=== PATIENT | female | born 1940 | race Caucasian/White ===

== ENCOUNTER → 2017-10-16 | Outpatient (CLI) | payer OTHER ==
[~2017-10-16] MED LIST: ALBUTEROL2.5 MG/0.5 INH; CHILDREN'S ASPI81 M1 PO; LEVAQUIN 500 M500 M2 PO; LIPITOR 20 MG T20 M1 PO; ONE-A-DAY WOMENS PO; PREDNISONE 20 M20 MG PO; VITAMIN D5000 UNI1 PO
== END ==
LOC: M.RAD 14:22
DX: M48.56XA Collapsed vertebra, not elsewhere classified, lumbar region, initial encounter for fracture (principal); M43.8X6 Other specified deforming dorsopathies, lumbar region; M43.17 Spondylolisthesis, lumbosacral region; I70.0 Atherosclerosis of aorta

== ENCOUNTER → 2017-12-26 | Outpatient (CLI) | payer OTHER | LOC: M.ULTRA 11:00 → M.RAD 12:55 | DX: Z12.31 Encounter for screening mammogram for malignant neoplasm of breast (principal); G45.9 Transient cerebral ischemic attack, unspecified; Z85.79 Personal history of other malignant neoplasms of lymphoid, hematopoietic and related tissues; J44.9 Chronic obstructive pulmonary disease, unspecified ==

== ENCOUNTER → 2019-08-07 | Outpatient (CLI) | payer OTHER | LOC: M.ULTRA 09:45 | DX: I65.23 Occlusion and stenosis of bilateral carotid arteries (principal) ==

== ENCOUNTER 2021-02-24 17:52 | Inpatient (IN) | payer OTHER ==
[~2021-02-24] VITALS: Ht 152.4 cm; Wt 54.6 kg
[2021-02-24 18:05] VITALS: BP 128/50
[2021-02-24] MEDS ORDERED: VITAMIN B-121000 MC2 SUBLING (18:19)
[2021-02-24] MEDS ORDERED: TRELEGY ELLIPT1 EACH INH (18:19)
[2021-02-24] MEDS ORDERED: DULCOLAX STOOL100 M1 PO (18:19)
[2021-02-24] MEDS ORDERED: VITAMIN E100 UNIT PO (18:19)
[2021-02-24] MEDS ORDERED: VITAMIN C500 MG PO (18:19)
[2021-02-24 18:44] LABS: ABSOLUTE BASOPHILS 0.1 thou/uL (0.0-0.2); ABSOLUTE EOSINOPHILS 0.1 thou/uL (0.0-0.7); ABSOLUTE LYMPHOCYTES 2.2 thou/uL (0.8-5.3); ABSOLUTE NEUTROPHILS 5.9 thou/uL (1.6-8.1); BASOPHILS 0.7 %; EOSINOPHILS 1.3 %; HEMATOCRIT 36.5 % (37.0-47.0); HEMOGLOBIN 12.2 gm/dL (12.0-15.0); LYMPHOCYTES 23.6 %; MCH 31.4 pg (26.0-34.0); MCHC 33.5 g/dL (28.0-37.0); MCV 93.9 fL (80.0-100.0); MONOCYTES 10.3 %; NUCLEATED RBCS 0 /100WBC; PLATELET COUNT* 369 thou/uL (150-400); POLYS 64.1 %; RBC 3.89 mil/uL (4.20-5.00); RDW-CV 14.5 % (10.5-14.5); WBC 9.3 thou/uL (4.0-11.0)
[2021-02-24 18:51] LABS: CALCIUM 9.3 mg/dL (8.5-10.1); CREATININE 0.6 mg/dL (0.6-1.3); POTASSIUM 3.6 mmol/L (3.5-5.1)
[2021-02-24 18:55] LABS: ALBUMIN 3.1 g/dL (3.4-5.0); TOTAL BILIRUBIN 0.5 mg/dL (<0.1-1.0); TOTAL PROTEIN 7.4 g/dL (6.4-8.2)
[2021-02-24 21:57] VITALS: BP 134/65
[2021-02-25 04:01] VITALS: BP 121/64
[2021-02-25 09:50] VITALS: BP 111/47
[2021-02-25 11:49] LABS: BE 6.8 mmol/L (-2 to +3); PCO2 45.2 mmHg (35.0-45.0); PO2 67.6 mmHg (75.0-100.0); pH 7.461 (7.340-7.450)
[2021-02-25 11:53] VITALS: BP 110/49
--- NOTE | 2021-02-25 12:55 | EKG ---
[place] [address] ELECTROCARDIOGRAM REPORT Name: RADHIKA STONE Room: [place] [address] ADM IN .R.#: [id number] Admission: 02/25/21 Attend Phys: Lulu Lisa Discharge: Date of : 44 Date of Service: 02/24/211812 Report #: [id number] THIS REPORT FOR: //name// [facility] ED Test Date: 2021-02-24 Test Time: 18:13:04 Pat Name: RADHIKA STONE Department: Room: [facility] Gender: F Sales Representative Business Courses: VISHNU : 1940 Requested By: Gurwinder Cao Order Number: [id number] MD: Santhosh Mackenzie Measurements Intervals [place] Rate: 90 P: 59 CO: 154 QRS: -15 QRSD: 90 T: 24 QT: 326 QTc: 399 Interpretive Statements Sinus rhythm Borderline left axis deviation Compared to ECG 11/26/2016 22:01:37 Sinus tachycardia no longer present ST (T wave) deviation no longer present Electronically Signed On 02-25-2021 12:54:59 CDT by Santhosh Mackenzie [email or web address] <ELECTRONICALLY SIGNED> By: Santhosh Mackenzie MD, [facility] 02/25/21 1254 181 181 Santhosh Mackenzie MD, [facility] /EPI
[2021-02-25 16:00] VITALS: BP 104/49
[2021-02-26] VITALS: BP 121/44
[2021-02-26 04:22] VITALS: BP 116/50
[2021-02-26 05:25] LABS: ABSOLUTE LYMPHOCYTES 0.7 thou/uL (0.8-5.3); ABSOLUTE MONOCYTES 0.2 thou/uL (0.0-1.2); ABSOLUTE NEUTROPHILS 5.9 thou/uL (1.6-8.1); BASOPHILS 0.2 %; HEMATOCRIT 33.1 % (37.0-47.0); LYMPHOCYTES 10.6 %; MCH 31.3 pg (26.0-34.0); MCHC 33.2 g/dL (28.0-37.0); MCV 94.2 fL (80.0-100.0); MONOCYTES 3.3 %; MPV 7.4 fl. (7.2-11.1); NUCLEATED RBCS 0 /100WBC; PLATELET COUNT* 337 thou/uL (150-400); POLYS 85.9 %; RBC 3.51 mil/uL (4.20-5.00); RDW-CV 14.8 % (10.5-14.5); WBC 6.8 thou/uL (4.0-11.0)
[2021-02-26 05:42] LABS: ALBUMIN 2.8 g/dL (3.4-5.0); CALCIUM 9.1 mg/dL (8.5-10.1); CREATININE 0.5 mg/dL (0.6-1.3); PHOSPHORUS* 4.2 mg/dL (2.5-4.9); POTASSIUM 4.9 mmol/L (3.5-5.1); TOTAL BILIRUBIN 0.3 mg/dL (<0.1-1.0); TOTAL PROTEIN 6.8 g/dL (6.4-8.2)
[2021-02-26 08:00] VITALS: BP 102/51
[2021-02-26 15:14] VITALS: BP 113/51
[2021-02-26 20:00] VITALS: BP 98/50
[2021-02-26 23:40] VITALS: BP 106/42
[2021-02-27 04:39] LABS: HEMATOCRIT 33.5 % (37.0-47.0); HEMOGLOBIN 11.2 gm/dL (12.0-15.0); MCH 31.4 pg (26.0-34.0); MCHC 33.4 g/dL (28.0-37.0); MCV 94.2 fL (80.0-100.0); MPV 7.6 fl. (7.2-11.1); NUCLEATED RBCS 0 /100WBC; PLATELET COUNT* 335 thou/uL (150-400); RBC 3.56 mil/uL (4.20-5.00); WBC 9.5 thou/uL (4.0-11.0)
[2021-02-27 04:56] VITALS: BP 113/59
[2021-02-27 04:59] LABS: CALCIUM 9.2 mg/dL (8.5-10.1); CREATININE 0.5 mg/dL (0.6-1.3); MAGNESIUM 1.9 mg/dL (1.8-2.4); POTASSIUM 4.5 mmol/L (3.5-5.1)
[2021-02-27 05:51] LABS: ABSOLUTE LYMPHOCYTES 0.8 thou/uL (0.8-5.3); ABSOLUTE MONOCYTES 0.2 thou/uL (0.0-1.2); ABSOLUTE NEUTROPHILS 8.6 thou/uL (1.6-8.1); ANISOCYTOSIS 1+; PLATELET ESTIMATE ADEQUATE; POIKILOCYTOSIS 1+
[2021-02-27 08:00] VITALS: BP 102/48
[2021-02-27 11:40] VITALS: BP 123/57
--- NOTE | 2021-02-27 15:08 | CON ---
[address] [address] CONSULTATION Name: RADHIKA STONE Alyssa Room: [address] IN M.R.#: [id number] Admission: 02/25/21 Attend Phys: Tate Stubbs Discharge: Date of : 44 Report #: [id number] THIS REPORT FOR: cc: Chauncey Iniguez Adam J DO Pervez, Adeel MD ~ DOC #: [id number] Dano Bishop MD DATE OF CONSULTATION: 02/25/2021 CONSULTATION REQUESTED BY: Dr. Stu Reinoso INDICATION FOR CONSULTATION: Acute hypoxemic respiratory failure. HISTORY OF PRESENT ILLNESS: A 80-year-old female. Past medical history includes a history of COPD. The patient usually takes 3-4 liters of oxygen, continuous. Based on her CAT scan, it also appears to me that she has an interstitial lung disease. It is not known to me as to whether this has been previously diagnosed. The patient has an extensive previous history of smoking. The patient has now presented with increasing shortness of breath of the last several days' duration. The patient says that she has been checking her pulse oximetry at home and has noticed that O2 saturation has been dropping. The patient also reported having had a cough, but not much sputum. There is no chest pain. She does not have upper respiratory complaints. There is no increasing swelling of lower extremities. There is no joint pain, no fever or chills. The patient does report that she was vaccinated for COVID-19. Currently, the patient is requiring about 5 liters of oxygen to maintain O2 saturation in the low 90s. Note that usually she saturates at this level at around 3-4 liters, there is increase in oxygen needs. REVIEW OF SYSTEMS: Review of systems for 12 points is negative except as mentioned above. PAST MEDICAL HISTORY: COPD, not known to me as to whether the patient has already been diagnosed with an interstitial lung disease, on oxygen long-term. There is an echo from 2017, which looks unremarkable. Left hip surgery, gallbladder surgery, osteoporosis, hyperlipidemia, bilateral cataract surgery, right hip surgery, hysterectomy. SOCIAL HISTORY: She has an extensive history of smoking, has now discontinued. About one alcoholic drink a day. No known history of illegal drug use. CURRENT MEDICATIONS: [place] [address] CONSULTATION Name: STONERADHIKA Room: [address] IN [facility].#: [id number] Admission: 02/25/21 Attend Phys: Tate Stubbs Discharge: Date of : 44 Report #: [id number] HOME MEDICATIONS: List in [place] reviewed. FAMILY HISTORY: There is no pertinent family history. PHYSICAL EXAMINATION: GENERAL: She is alert, awake and oriented, did not appear to be in any distress. VITAL SIGNS: Pulse of 91, blood pressure of 104/49. She was well perfused, sitting comfortably in a chair, but saturating 92% on 5 liters nasal cannula. Respiratory rate 17-18. Afebrile, temperature is 36.8. HEENT: Normocephalic and atraumatic. The pupils are equal. There is no throat erythema. Mucous membranes are moist. NECK: Does not show raised JVP, asymmetry, mass or lymph nodes. CHEST: Symmetrical expansion on inspection and palpation. On auscultation, there are rales at the right lung base. Breath sounds are bilaterally decreased. Expirations are prolonged. No wheezes are heard. HEART: Regular. There is no murmur. ABDOMEN: Soft and nontender. LOWER EXTREMITIES: Show no edema, no calf tenderness. There is evidence of chronic venous insufficiency. There are some varicose veins noted. SKIN: However, is dry and intact. NEUROLOGIC: Moves all extremities bilaterally equally and spontaneously, no focal deficit identified. DIAGNOSTIC DATA: The patient's CTA chest is reviewed. Chest x-ray also reviewed. Primarily, this appears to be consistent with an interstitial lung disease. There are some atypical looking infiltrates as well. The radiologist has mentioned that there may be some mild bronchiectasis. There are no pulmonary emboli. LABORATORY DATA: The patient's lab work in [place] reviewed. COVID-19 antigen is negative. PCR is pending. ASSESSMENT AND PLAN: 1. Acute on chronic hypoxemic respiratory failure. In addition, it appears to me that she has an interstitial lung disease, unknown as to whether this was previously diagnosed. There are some atypical infiltrates as well. 2. Chronic obstructive pulmonary disease exacerbation. I agree with the Solu-Medrol as well as albuterol inhaler. We will switch this to nebulized bronchodilators if the COVID-19 PCR comes back negative or if we have a negative pressure room available. The patient appears to be doing well with the inhaler at this time and therefore, I do not feel strongly about changing therapy at this time. 3. Interstitial lung disease. CT is consistent with this, CXR from a [address] [address] CONSULTATION Name: RADHIKA STONE Room: [place] [address] ADM IN M.R.#: [id number] Admission: 02/25/21 Attend Phys: Tate Stubbs Discharge: Date of : 44 Report #: [id number] years ago, which also appears to be consistent with this. Not known to me as to whether the patient was previously diagnosed. I will go ahead and obtain connective tissue markers to evaluate further. 4. Atypical infiltrates. Note that she has been vaccinated for COVID. Also, the CT findings are not typical for COVID, so my suspicion of COVID is fairly low; however, I feel that it is reasonable to go ahead and obtain a PCR and rule this out. These infiltrates may be old and related to her interstitial lung disease; however, a new pneumonia including atypical pneumonia does need to be considered as well. I would, therefore, go ahead and send off serologies for atypicals. I also recommend that we add azithromycin. The patient remains on ceftriaxone. If able to, again obtain a sputum culture. Previous pulmonary followup is not known to me. If a previous CT chest is not available for comparison, I would recommend that we repeat a CT chest without contrast for followup in 3 months. 5. Evaluation for thromboembolic phenomena/cardiac evaluation. Her BNP was elevated to 580. She did not appear to be significantly fluid overloaded. On exam, D-dimer is elevated. There are no pulmonary emboli on CTA chest. I would go ahead and obtain venous Dopplers. We will also do an echo. 6. Clostridium difficile prophylaxis. We will add Lactinex. 7. Gastrointestinal prophylaxis, already on Protonix. Thanks for this consultation. MD RAFAL Mora/NAN <ELECTRONICALLY SIGNED> By: Dano Bishop MD 02/27/21 1508 1959 [id number] Bishop MD /nt
[2021-02-27 20:00] VITALS: BP 117/63
[2021-02-27 23:46] VITALS: BP 101/45
[2021-02-28 04:34] VITALS: BP 108/70
[2021-02-28 08:00] VITALS: BP 99/49
[2021-02-28 10:08] LABS: ANTI-DNA SCREEN <1 IU/mL (0-9); ANTI-RNP <0.2 AI (0.0-0.9); ANTI-SSA <0.2 AI (0.0-0.9); ANTIJO-I AB <0.2 AI (0.0-0.9)
[2021-02-28 16:00] VITALS: BP 97/50
[2021-02-28 20:00] VITALS: BP 108/62
[2021-02-28 23:06] LABS: MYCOPLASMA PNEUMONIA IgG 254 U/mL (0-99); MYCOPLASMA PNEUMONIA IgM <770 U/mL (0-769)
[2021-03-01 07:00] VITALS: BP 112/59
[2021-03-01 08:08] VITALS: BP 112/59
[2021-03-01] MEDS ORDERED: AZITHROMYCIN 2250 MG PO (09:02)
[2021-03-01] MEDS ORDERED: PREDNISONE 10 M10 M1 PO (09:02)
[2021-03-01 11:44] VITALS: BP 112/59
== END 2021-03-01 16:47 | disposition home health service (06) | DRG 177 ==
LOC: M.ERS 17:52 → M.TBA-ER 21:43 → M.2W 22:28 → M.ORTHSURG 02-25 11:21 → M.2W 02-28 09:08 → M.ORTHSURG 02-28 18:09
PROVIDERS: Emergency Medicine; Internal Medicine; Internal Medicine Critical Care Medicine; ADMIT Internal Medicine; ATTEND Internal Medicine
PROC: 5A0935A Assistance with Respiratory Ventilation, Less than 24 Consecutive Hours, High Flow/Velocity Cannula (ICD-10-PCS; principal; 2021-02-26)
DX: J15.6 Pneumonia due to other Gram-negative bacteria (principal); J96.20 Acute and chronic respiratory failure, unspecified whether with hypoxia or hypercapnia; J84.9 Interstitial pulmonary disease, unspecified; J43.9 Emphysema, unspecified; E78.00 Pure hypercholesterolemia, unspecified; M81.0 Age-related osteoporosis without current pathological fracture; Z20.822 Contact with and (suspected) exposure to COVID-19; Z96.643 Presence of artificial hip joint, bilateral; Z87.891 Personal history of nicotine dependence; Z98.42 Cataract extraction status, left eye; Z98.41 Cataract extraction status, right eye; Z90.49 Acquired absence of other specified parts of digestive tract; Z79.82 Long term (current) use of aspirin; Z79.899 Other long term (current) drug therapy; Z72.89 Other problems related to lifestyle; Z90.710 Acquired absence of both cervix and uterus

== ENCOUNTER → 2021-04-12 | Outpatient (CLI) | payer OTHER ==
[~2021-04-12] MED LIST changes: +AZITHROMYCIN 2250 MG PO; +DULCOLAX STOOL100 M1 PO; +PREDNISONE 10 M10 M1 PO; +TRELEGY ELLIPT1 EACH INH; +VITAMIN B-121000 MC2 SUBLING; +VITAMIN C500 MG PO; +VITAMIN E100 UNIT PO
--- NOTE | 2021-04-12 09:54 | 2DMMODE ---
[place] [address] 2 D/M-MODE ECHOCARDIOGRAM Name: RADHIKA STONE Room: [facility]#: [id number] Admission: 04/12/21 Attend Phys: Dano Bishop MD Discharge: Date of : 44 Date of Service: 04/12/21 0953 Report #: [id number] THIS REPORT FOR: cc: Chauncey Iniguez Adam J DO Blick,Santhosh Middleton MD [facility] ~ APPROVED REPORT Study performed: 04/12/2021 08:36:47 EXAM: Comprehensive 2D, Doppler, and color-flow Echocardiogram Patient Location: Out-Patient BSA: 1.57 HR: 98 bpm BP: 119/60 mmHg Other Information Study Quality: Good Indications Dyspnea 2D Dimensions IVSd: 8.62 (7-11mm) LVOT Diam: 20.15 (18-24mm) LVDd: 41.45 mm PWd: 9.12 (7-11mm) Ascending Ao: 29.17 (22-36mm) LVDs: 22.65 (25-40mm) Aortic Root: 32.79 mm Volumes Left Atrial Volume (Systole) LA ESV Index: 12.50 mL/m2 Aortic Valve AoV Peak Jimmy.: 1.43 m/s AO Peak Gr.: 8.23 mmHg LVOT Max P.83 mmHg AO Mean Gr.: 4.73 mmHg LVOT Mean P.34 mmHg LVOT Max V: 0.84 m/s AO V2 VTI: 26.91 cm LVOT Mean V: 0.53 m/s FLORENCE (VTI): 2.04 cm2 LVOT V1 VTI: 17.18 cm Mitral Valve E/A Ratio: 0.69 [place] [address] 2 D/M-MODE ECHOCARDIOGRAM Name: RADHIKA STONE Room: [facility]#: [id number] Admission: 04/12/21 Attend Phys: Dano Bishop MD Discharge: Date of : 44 Date of Service: 04/12/21 0953 Report #: [id number] MV Decel. Time: 234.13 ms MV E Max Jimmy.: 0.60 m/s MV PHT: 67.90 ms MVA (PHT): 3.24 cm2 TDI E/Lateral E': 6.67 E/Medial E': 6.67 Medial E' Jimmy.: 0.09 m/s Lateral E' Jimmy.: 0.09 m/s Pulmonary Valve PV Peak Jimmy.: 0.92 m/s PV Peak Gr.: 3.42 mmHg Tricuspid Valve RAP Estimate: 5.00 mmHg TR Peak Gr.: 62.21 mmHg RVSP: 67.21 mmHg PA Pressure: 67.21 mmHg Left Ventricle The left ventricle is normal size. There is normal LV segmental wall motion. There is normal left ventricular wall thickness. Left ventricular systolic function is normal. The left ventricular ejection fraction is within the normal range. LVEF is 60-65%. Grade I - abnormal relaxation pattern. Right Ventricle The right ventricle is normal size. The right ventricular systolic function is normal. Atria The left atrium size is normal. The right atrium size is normal. Aortic Valve Aortic valve leaflets are mildly thickened. No aortic regurgitation is present. There is no aortic valvular stenosis. Mitral Valve The mitral valve is normal in structure. There is no mitral valve regurgitation noted. No evidence of mitral valve stenosis. Tricuspid Valve The tricuspid valve is normal in structure. Moderate tricuspid regurgitation. estimated pa pressure 60 mm [place] [address] 2 D/M-MODE ECHOCARDIOGRAM Name: RADHIKA STONE Room: [facility]#: [id number] Admission: 04/12/21 Attend Phys: Dano Bishop MD Discharge: Date of : 44 Date of Service: 04/12/21 0953 Report #: [id number] The pulmonary valve is normal in structure. There is no pulmonic valvular regurgitation. Great Vessels The aortic root is normal in size. IVC is normal in size and collapses >50% with inspiration. Pericardium There is no pericardial effusion. <Conclusion> LVEF is 60-65%. Aortic valve leaflets are mildly thickened. Moderate tricuspid regurgitation. estimated pa pressure 60 mm Hg <ELECTRONICALLY SIGNED> By: Santhosh Mackenzie MD, FACC 04/12/2153 2 2 Santhosh Mackenzie MD, FACC /INF
== END ==
LOC: M.CRD 03-28 16:09
PROVIDERS: ATTEND Internal Medicine Critical Care Medicine
DX: S22.060A Wedge compression fracture of T7-T8 vertebra, initial encounter for closed fracture (principal); I08.2 Rheumatic disorders of both aortic and tricuspid valves; J84.9 Interstitial pulmonary disease, unspecified; R91.8 Other nonspecific abnormal finding of lung field; J96.11 Chronic respiratory failure with hypoxia; X58.XXXA Exposure to other specified factors, initial encounter; Y92.89 Other specified places as the place of occurrence of the external cause; Y93.89 Activity, other specified; Y99.8 Other external cause status

== ENCOUNTER → 2021-04-24 | Outpatient (CLI) | payer OTHER | LOC: M.PC 04-10 09:00 | PROVIDERS: ATTEND Physical Medicine & Rehabilitation | DX: M48.56XA Collapsed vertebra, not elsewhere classified, lumbar region, initial encounter for fracture (principal); M47.816 Spondylosis without myelopathy or radiculopathy, lumbar region; M48.061 Spinal stenosis, lumbar region without neurogenic claudication; J44.9 Chronic obstructive pulmonary disease, unspecified; I70.0 Atherosclerosis of aorta; Z87.01 Personal history of pneumonia (recurrent); Z96.641 Presence of right artificial hip joint ==

== ENCOUNTER → 2021-05-05 | Outpatient (CLI) | payer OTHER ==
[~2021-05-05] MED LIST changes: +SINGULAIR 10 MG10 MG PO; +TYLENOL325 M1 PO
--- NOTE | 2021-06-16 20:09 | SLEEP ---
[address] [address] SLEEP STUDY REPORT Name: RADHIKA STONE Room: [facility]#: [id number] Admission: 05/05/21 Attend Phys: Dano Bishop MD Discharge: Date of : 44 Report #: [id number] THIS REPORT FOR: cc: Chauncey Iniguez Adam J DO Pervez, Adeel MD ~ DATE OF STUDY: 05/05/2021 SLEEP STUDY INDICATION FOR SLEEP STUDY: Daytime sleepiness/hypersomnia with a history of COPD. The patient is on long-term oxygen. INTERPRETATION: Total duration of the study is 441 minutes out of which she was asleep for 200 minutes with an overall sleep efficiency significantly decreased to 45.3%. Sleep onset was delayed occurring almost 2 hours after lying down in bed and REM onset occurred 190 minutes after sleep onset. N1 sleep duration is 17%, N2 duration is 57%, N3 duration is 15%, REM duration was 12%. Recorded occasional sleep related respiratory events. These included 1 central apnea, 1 obstructive apnea, 6 hypopneas and 1 respiratory effort related arousals. The patient's overall apnea-hypopnea index was normal at 2.4 with a respiratory disturbance index also normal at 2.7. Body position data indicates that 103 minutes of supine sleep was recorded. The rest of the time the patient was in other positions. Mean heart rate was 80. There were no periodic limb movements recorded. Arousal index was mildly elevated to 13.8. The patient arrived in the sleep lab wearing 3 liters of oxygen. Sleep study was initially started on room air; however, the O2 saturation dropped to 70%; therefore, the patient was placed on 1 liter of oxygen to maintain on 1 liter of oxygen throughout the night. We did record multiple desaturations with 1 liter of oxygen in place. The patient spent 344 minutes below an O2 saturation of 88%. IMPRESSION: 1. Chronic hypoxemic respiratory failure secondary to chronic obstructive pulmonary disease with nocturnal hypoxemia, not adequately controlled with 1 liter of oxygen. 2. While obstructive sleep apnea is not detected during the sleep study, it is not ruled out either. The patient's sleep efficiency is significantly decreased to 45.3% and the patient was awake for more than half the night. RECOMMENDATIONS: 1. The patient currently remains on oxygen at 3-4 liters via nasal cannula while asleep. We will continue the same and we will follow [place] [address] SLEEP STUDY REPORT Name: RADHIKA STONE Room: [facility]#: [id number] Admission: 05/05/21 Attend Phys: Dano Bishop MD Discharge: Date of : 44 Report #: [id number] 2. We will assess further regarding the possibility of obstructive sleep apnea on a subsequent office visits as well. If suspicion remains high, then a repeat sleep study could be performed later. 3. Recommend avoiding driving and other activities requiring vigilance if drowsy. This entire sleep study was reviewed by board certified sleep physician. <ELECTRONICALLY SIGNED> By: Dano Bishop MD 06/16/212008 0745Dano Bishop MD /nt
== END ==
LOC: M.SLEEPLAB 19:52
PROVIDERS: ATTEND Internal Medicine Critical Care Medicine
DX: G47.10 Hypersomnia, unspecified (principal); J44.9 Chronic obstructive pulmonary disease, unspecified; J96.11 Chronic respiratory failure with hypoxia; R53.83 Other fatigue; Z99.81 Dependence on supplemental oxygen

== ENCOUNTER → 2021-05-08 | Outpatient (CLI) | payer OTHER | LOC: M.PC 08:57 | PROVIDERS: ATTEND Physical Medicine & Rehabilitation | DX: M47.26 Other spondylosis with radiculopathy, lumbar region (principal); M48.061 Spinal stenosis, lumbar region without neurogenic claudication; J44.9 Chronic obstructive pulmonary disease, unspecified; Z87.01 Personal history of pneumonia (recurrent); Z79.891 Long term (current) use of opiate analgesic; Z79.899 Other long term (current) drug therapy ==

== ENCOUNTER → 2021-05-29 | Outpatient (CLI) | payer OTHER ==
[2021-05-29 12:24] LABS: CREATININE 0.7 mg/dL (0.6-1.3)
== END ==
LOC: M.ULTRA 05-26 12:16 → M.LAB 10:06 → M.ULTRA 11:00 → M.CT 11:30
PROVIDERS: ATTEND Internal Medicine Critical Care Medicine
DX: S32.010A Wedge compression fracture of first lumbar vertebra, initial encounter for closed fracture (principal); I83.893 Varicose veins of bilateral lower extremities with other complications; J96.11 Chronic respiratory failure with hypoxia; J44.9 Chronic obstructive pulmonary disease, unspecified; I27.20 Pulmonary hypertension, unspecified; J84.9 Interstitial pulmonary disease, unspecified; J90 Pleural effusion, not elsewhere classified; X58.XXXA Exposure to other specified factors, initial encounter; Y92.89 Other specified places as the place of occurrence of the external cause; Y93.89 Activity, other specified; Y99.8 Other external cause status

== ENCOUNTER → 2021-05-29 | Outpatient (CLI) | payer OTHER | END | disposition home or self-care (01) | LOC: M.PC 10:00 | PROVIDERS: ATTEND Physical Medicine & Rehabilitation | DX: M54.5 Low back pain (principal); M47.816 Spondylosis without myelopathy or radiculopathy, lumbar region; M48.061 Spinal stenosis, lumbar region without neurogenic claudication; E78.5 Hyperlipidemia, unspecified; D64.9 Anemia, unspecified; M81.0 Age-related osteoporosis without current pathological fracture; M19.90 Unspecified osteoarthritis, unspecified site; J44.9 Chronic obstructive pulmonary disease, unspecified; Z98.890 Other specified postprocedural states; Z79.899 Other long term (current) drug therapy ==

== ENCOUNTER → 2021-06-12 | Outpatient (CLI) | payer OTHER | END | disposition home or self-care (01) | LOC: M.PC 10:20 | PROVIDERS: ATTEND Physical Medicine & Rehabilitation | DX: M47.816 Spondylosis without myelopathy or radiculopathy, lumbar region (principal); M54.5 Low back pain; M48.061 Spinal stenosis, lumbar region without neurogenic claudication; J44.9 Chronic obstructive pulmonary disease, unspecified; M81.0 Age-related osteoporosis without current pathological fracture; E78.5 Hyperlipidemia, unspecified; D64.9 Anemia, unspecified; M19.90 Unspecified osteoarthritis, unspecified site; Z98.890 Other specified postprocedural states; Z79.899 Other long term (current) drug therapy ==

== ENCOUNTER 2021-08-22 15:44 | Inpatient (IN) | payer OTHER ==
[~2021-08-22] VITALS: Ht 154.9 cm; Wt 49.0 kg
[2021-08-22 15:51] VITALS: BP 121/62
[2021-08-22 16:20] LABS: ABSOLUTE BASOPHILS 0.1 thou/uL (0.0-0.2); ABSOLUTE EOSINOPHILS 0.1 thou/uL (0.0-0.7); ABSOLUTE LYMPHOCYTES 1.8 thou/uL (0.8-5.3); ABSOLUTE NEUTROPHILS 7.3 thou/uL (1.6-8.1); BASOPHILS 0.9 %; EOSINOPHILS 0.8 %; HEMATOCRIT 39.1 % (37.0-47.0); HEMOGLOBIN 12.9 gm/dL (12.0-15.0); MCH 31.2 pg (26.0-34.0); MCHC 32.9 g/dL (28.0-37.0); MCV 94.8 fL (80.0-100.0); MONOCYTES 9.5 %; MPV 7.3 fl. (7.2-11.1); NUCLEATED RBCS 0 /100WBC; PLATELET COUNT* 411 thou/uL (150-400); POLYS 70.8 %; RBC 4.12 mil/uL (4.20-5.00); RDW-CV 14.9 % (10.5-14.5); WBC 10.3 thou/uL (4.0-11.0)
[2021-08-22 16:29] LABS: CALCIUM 9.4 mg/dL (8.5-10.1); CREATININE 0.7 mg/dL (0.6-1.3); POTASSIUM 3.9 mmol/L (3.5-5.1)
[2021-08-22] MEDS ORDERED: PREDNISONE 10 M10 MG PO (16:38)
[2021-08-22 16:45] LABS: ALBUMIN 3.5 g/dL (3.4-5.0); MAGNESIUM 1.7 mg/dL (1.8-2.4); TOTAL BILIRUBIN 0.7 mg/dL (<0.1-1.0); TOTAL PROTEIN 7.8 g/dL (6.4-8.2)
[2021-08-22 20:00] VITALS: BP 113/50
[2021-08-23] VITALS (7 sets, daily range): BP systolic 101–115; BP diastolic 39–68
[2021-08-23 03:22] LABS: HEMATOCRIT 35.8 % (37.0-47.0); HEMOGLOBIN 11.9 gm/dL (12.0-15.0); MCH 31.3 pg (26.0-34.0); MCHC 33.3 g/dL (28.0-37.0); MCV 93.8 fL (80.0-100.0); MPV 7.1 fl. (7.2-11.1); NUCLEATED RBCS 0 /100WBC; PLATELET COUNT* 349 thou/uL (150-400); RBC 3.82 mil/uL (4.20-5.00); RDW-CV 14.7 % (10.5-14.5); WBC 6.3 thou/uL (4.0-11.0)
[2021-08-23 03:40] LABS: CALCIUM 8.9 mg/dL (8.5-10.1); CREATININE 0.7 mg/dL (0.6-1.3); POTASSIUM 4.5 mmol/L (3.5-5.1)
[2021-08-23 06:42] LABS: ABSOLUTE LYMPHOCYTES 0.5 thou/uL (0.8-5.3); ABSOLUTE NEUTROPHILS 5.8 thou/uL (1.6-8.1); PLATELET ESTIMATE ADEQUATE; POLYCHROMASIA 1+
--- NOTE | 2021-08-23 08:28 | NUR ---
TOOK OVER PATIENT CARE AT APPROXIMATELY 0030 FROM NURSE PEREZ. REPORT GIVEN. NURSE AGREES WITH REPORT. PATIENT HAS RESTED QUIETLY AND REMAINS ON NON-REBREATHER. VSS. IV IN LEFT AC-SL. PURE WIK IN PLACE WITH YELLOW URINE OUTPUT. PATIENT INSTRUCTED TO USE CALL LIGHT WHEN NEEDING ASSISTANCE. NURSING TO CONTINUE MONITORING.
--- NOTE | 2021-08-23 08:48 | EKG ---
[place] [address] ELECTROCARDIOGRAM REPORT Name: RADHIKA STONE Room: [place] [address] ADM IN [facility].#: [id number] Admission: 08/22/21 Attend Phys: Stu Reinoso, Discharge: Date of : 44 Date of Service: 08/22/21 1613 Report #: [id number] THIS REPORT FOR: //name// [facility] ED Test Date: 2021-08-22 Test Time: 16:13:47 Pat Name: RADHIKA STONE Department: Room: [facility] Gender: F Biologics Specialist: CHILO : 1940 Requested By: Pee Diez Order Number: [id number] MD: Santhosh Mackenzie Measurements Intervals [place] Rate: 105 P: 48 ND: 132 QRS: 20 QRSD: 94 T: 28 QT: 330 QTc: 437 Interpretive Statements Sinus tachycardia Left atrial enlargement Low voltage, extremity leads Minimal ST depression, lateral leads Baseline wander in lead(s) V2 Compared to ECG 02/24/2021 18:13:04 Low QRS voltage now present ST (T wave) deviation now present Sinus rhythm no longer present Electronically Signed On 08-23-2021 8:47:57 NIGHT WORKER by Santhosh Mackenzie [email or web address] <ELECTRONICALLY SIGNED> By: Santhosh Mackenzie MD, [facility] 08/23/21 0847 12 161 Santhosh Mackenzie MD, [facility] /EPI
--- NOTE | 2021-08-23 16:08 | NUR ---
NOTIFIED DR MENA DAUGHTER WANTS TO TALK TO DR CHANTAL DISCUSSING POC WITH DAUGHTER AT THIS PLAN. REFER TO PHYSICIAN'S ORDERS FOR FURTHER DOCUMENTATION
--- NOTE | 2021-08-23 16:16 | NUR ---
ER REGISTRATION STATES NO PREVIOUS SCANNED ADVANCED DIRECTIVE ON FILE
--- NOTE | 2021-08-23 16:22 | NUR ---
[facility] ANSWERING [facility]ICE CALLED AND NOTIFIED THAT PT IS IN ER
--- NOTE | 2021-08-23 17:53 | NUR ---
PT STATES HAVING DIARRHEA REQUESTING MEDICATION, PUT IN MD CALL TO
[2021-08-24 04:52] LABS: ABSOLUTE MONOCYTES 0.9 thou/uL (0.0-1.2); ABSOLUTE NEUTROPHILS 13.1 thou/uL (1.6-8.1); BASOPHILS 0.1 %; HEMATOCRIT 34.9 % (37.0-47.0); HEMOGLOBIN 11.5 gm/dL (12.0-15.0); LYMPHOCYTES 6.6 %; MCH 31.3 pg (26.0-34.0); MCHC 32.9 g/dL (28.0-37.0); MCV 95.2 fL (80.0-100.0); MONOCYTES 6.3 %; MPV 7.3 fl. (7.2-11.1); NUCLEATED RBCS 0 /100WBC; PLATELET COUNT* 367 thou/uL (150-400); RBC 3.67 mil/uL (4.20-5.00); RDW-CV 14.9 % (10.5-14.5)
[2021-08-24 05:19] LABS: ALBUMIN 2.9 g/dL (3.4-5.0); CALCIUM 8.9 mg/dL (8.5-10.1); CREATININE 0.6 mg/dL (0.6-1.3); MAGNESIUM 2.7 mg/dL (1.8-2.4); POTASSIUM 4.8 mmol/L (3.5-5.1); TOTAL BILIRUBIN 0.3 mg/dL (<0.1-1.0); TOTAL PROTEIN 6.4 g/dL (6.4-8.2)
--- NOTE | 2021-08-24 07:20 | NUR ---
CHANGE OF SHIFT BEDSIDE REPORT GIVEN PATIENT SEEN AT BEDSIDE IN BED ASLEP ASSUMED PATIENT CARE
[2021-08-24 08:00] VITALS: BP 121/57
[2021-08-24 12:00] VITALS: BP 97/60
[2021-08-24 16:00] VITALS: BP 123/58
--- NOTE | 2021-08-24 17:29 | CON ---
[address] [address] CONSULTATION Name: RADHIKA STONE Alyssa Room: [address] IN M.R.#: [id number] Admission: 08/22/21 Attend Phys: Stu Reinoso MD Discharge: Date of : 44 Report #: [id number] THIS REPORT FOR: cc: Chauncey Iniguez Adam J DO Pervez, Adeel MD ~ DATE OF CONSULTATION: 08/23/2021 REQUESTING PHYSICIAN: Consult has been requested by Dr. Stu Reinoso. INDICATION FOR CONSULTATION: Acute on chronic hypoxemic respiratory failure. HISTORY OF PRESENT ILLNESS: This is a 81-year-old female who has a history of severe COPD, also has interstitial lung disease and significant pulmonary hypertension. She was on prednisone as well as oxygen long-term, has now presented with increasing shortness of breath of several days' duration. She also has been coughing, but there is not much sputum production. She is not complaining of chest pain, does not have upper respiratory complaints. Does not have increase in swelling of lower extremities. She does have some joint pains, which remain at baseline. REVIEW OF SYSTEMS: Review of systems for 12 points is negative except as mentioned above. PAST MEDICAL HISTORY: Severe COPD, interstitial lung disease, connective tissue markers previously negative, severe pulmonary hypertension, left ventricular ejection fraction on the last echo is normal at 60-65% with pulmonary artery systolic is 67, previous workup for thromboembolism has been negative, left hip surgery, gallbladder surgery, osteoporosis, hyperlipidemia, cataract surgery, right hip surgery, hysterectomy. SOCIAL HISTORY: Extensive history of smoking in the past, has now discontinued. No known history of heavy alcohol use or illegal drug use. CURRENT MEDICATIONS: List in [employer] reviewed. HOME MEDICATIONS: List also in [employer] reviewed. Note that she is on prednisone long-term. FAMILY HISTORY: There is no pertinent family history. ALLERGIES: No known drug allergies. IMMUNIZATION HISTORY: She is reported to have been vaccinated for COVID-19 [place] [address] CONSULTATION Name: RADHIKA STONE Room: [address] IN [facility].#: [id number] Admission: 08/22/21 Attend Phys: Stu Reinoso MD Discharge: Date of : 44 Report #: [id number] PHYSICAL EXAMINATION: GENERAL: She is alert, awake and oriented. VITAL SIGNS: She is tachycardic. Heart rate is around 110 at the time of my evaluation, blood pressure 108/44. She was saturating 93-94% on 7 liters nasal cannula, respiratory rate mildly elevated to low 20s, afebrile with a temperature of 36.7. Body mass index is decreased to 19.3. HEENT: Head is normocephalic and atraumatic. Pupils are equal and reactive. There is no throat erythema. NECK: Does not show raised JVP, asymmetry, mass or lymph nodes. CHEST: Symmetrical expansion on inspection and palpation. On auscultation, breath sounds are bilaterally equal, but decreased. There are no added sounds. HEART: Regular, tachycardia noted. ABDOMEN: Soft and nontender. EXTREMITIES: Lower extremities show no edema and no calf tenderness. SKIN: Dry and intact. NEUROLOGIC: Moves all extremities bilaterally equally and spontaneously with no focal deficit identified. LABORATORY DATA: The patient had a CTA chest performed yesterday, it essentially remains unchanged. There is a finding consistent with an interstitial lung disease. There are no pulmonary emboli noted. The patient's lab work is in [employer] and this is also reviewed. ASSESSMENT AND PLAN: 1. Acute on chronic hypoxemic respiratory failure. The primary etiology of this appears to be chronic obstructive pulmonary disease exacerbation. In the background, the patient also does have significant pulmonary hypertension as well as interstitial lung disease as well. Unfortunately, the patient previously had not qualified for a BiPAP or Trilogy as we had performed a sleep study as well. I do recommend that she be placed on a BiPAP in AVAPS mode while asleep at this time. I will work with the case loader operator and see if we can get her a Trilogy device to use long-term at home as a noninvasive mechanical ventilator while asleep and as needed during the day as required to treat her acute on chronic hypoxemic respiratory failure and delay her eventual and also reduce readmission rate. 2. Chronic obstructive pulmonary disease exacerbation. This appears to be the primary etiology of her decompensation at this time. She already is on Solu-Medrol as well as nebulized bronchodilators. I would continue the same. Note that she is on long-term prednisone at home. 3. Severe pulmonary hypertension. This is secondary to chronic obstructive pulmonary disease and interstitial lung disease. Workup for thromboembolism previously is negative. CT of chest last night was also negative. For the sake of completion, I will also obtain venous Dopplers again tomorrow. [address] [address] CONSULTATION Name: RADHIKA STONE Room: [address] IN .R.#: [id number] Admission: 08/22/21 Attend Phys: Stu Reinoso MD Discharge: Date of : 44 Report #: [id number] 4. Interstitial lung disease. I will review with the patient as to whether she will be interested in initiating fibroblast inhibitor therapy; however, at this stage, the primary therapy for the patient's interstitial lung disease is supportive. 5. Pulmonary infiltrates. These are primarily secondary to interstitial lung disease since CT does not look significantly different from previous. Regardless, I agree with ceftriaxone. The etiology of why she has decompensated is not fully defined; therefore, I would go ahead and obtain a nasal swab for methicillin-resistant staphylococcus aureus as well. The patient has tested negative for COVID-19 and her antigen for COVID-19 also was negative. 6. Fluid restriction. The patient is noted to be on fluid restriction. She does not appear to be significantly fluid overloaded on my exam. I would favor discontinuing fluid restriction. Should she become more fluid overloaded, some diuresis could be administered. 7. Deep venous thrombosis prophylaxis, already on Lovenox. 8. Gastrointestinal prophylaxis. She is on Protonix. 9. Clostridium difficile prophylaxis. We will order Lactinex. 10. Hyperglycemia, insulin sliding scale. Thanks for this consultation. <ELECTRONICALLY SIGNED> By: Dano Bishop MD 08/24/21 1729 1815 [id number] Bishop MD /nt
[2021-08-24 20:00] VITALS: BP 108/51
[2021-08-25 01:21] VITALS: BP 117/56
--- NOTE | 2021-08-25 03:58 | NUR ---
PT ALERT ORIENTED. O2 AT 6 LITERS NC. BIPAP AT HS. PT WORE FOR A COUPLE OF HOURS THEN WANTED OFF. MAINTANING O2 SATS IN THE UPPER 90S. BILINGUAL SALES REPRESENTATIVE TRACING . BERHANE GIORDANO FOR URINE COLLECTION. DENIES PAIN.
[2021-08-25 04:35] LABS: ABSOLUTE LYMPHOCYTES 0.8 thou/uL (0.8-5.3); ABSOLUTE MONOCYTES 0.5 thou/uL (0.0-1.2); ABSOLUTE NEUTROPHILS 12.1 thou/uL (1.6-8.1); BASOPHILS 0.1 %; HEMOGLOBIN 11.6 gm/dL (12.0-15.0); LYMPHOCYTES 5.7 %; MCH 31.4 pg (26.0-34.0); MCHC 33.2 g/dL (28.0-37.0); MCV 94.7 fL (80.0-100.0); MONOCYTES 3.5 %; MPV 7.4 fl. (7.2-11.1); NUCLEATED RBCS 0 /100WBC; PLATELET COUNT* 357 thou/uL (150-400); POLYS 90.7 %; WBC 13.4 thou/uL (4.0-11.0)
[2021-08-25 04:45] LABS: APTT 28.5 Seconds (25.0-31.3); PROTIME 10.3 Seconds (9.20-11.50)
[2021-08-25 04:46] LABS: ALBUMIN 2.8 g/dL (3.4-5.0); CALCIUM 8.6 mg/dL (8.5-10.1); CREATININE 0.6 mg/dL (0.6-1.3); POTASSIUM 4.5 mmol/L (3.5-5.1); TOTAL BILIRUBIN 0.3 mg/dL (<0.1-1.0); TOTAL PROTEIN 6.6 g/dL (6.4-8.2)
[2021-08-25 05:19] VITALS: BP 115/60
[2021-08-25 08:00] VITALS: BP 120/50
--- NOTE | 2021-08-25 14:46 | NUR ---
ASSUMED CARE OF PT AT 0730. PT A&0X4, DENIES ANY PAIN OR SHORTNESS OF BREATH AT THIS TIME. TRACING SR ON THE FINANCIAL INSTITUTION MANAGER. PT ON 6L NC THIS AM AND TITRATED TO 5L NC THIS AFTERNOON-SAT MID 90'S. PT UP SBA TO BATHROOM. PT WORKED WITH PT AND OT TOLERATED WELL-SHORTNESS OF BREATH WITH EXERTION NOTED. PULM CONSULT IN PLACE. AM ASSESSMENT CHARTED. MEDICATIONS PER DEC. PT REPOSITIONS SELF. HOURLY ROUNDING OBSERVED. BED IN LOW POSITION. CALL LIGHT WITHIN REACH. WILL CONTINUE PLAN OF CARE.
[2021-08-25 16:00] VITALS: BP 127/64
[2021-08-25 20:00] VITALS: BP 112/53
[2021-08-26 01:50] VITALS: BP 123/61
--- NOTE | 2021-08-26 03:15 | NUR ---
PT ALERT ORIENTED X 4. O2 AT 5 LITERS NC[address] PURE WICK IN PLACE. LUNCHROOM AIDE TRACING SR.
[2021-08-26 05:56] VITALS: BP 114/53
[2021-08-26 08:00] VITALS: BP 124/54
[2021-08-26 17:52] VITALS: BP 104/49
--- NOTE | 2021-08-26 19:06 | NUR ---
PT ON 5L NC THIS AM-02 INCREASED TO 7L NC TO KEEP SAT ABOVE 90%. PT STATES SHE FEELS BETTER TODAY. TRACING SR ON THE WEED COOKING OPERATOR. PT RECEIVING IV ABX AND IV STEROIDS. NOT PROGRESSING TOWARDS GOALS. UP SBA TO BATHROOM. AM ASSESSMENT CHARTED. MEDICATIONS PER MAR. PT REPOSITIONS SELF WITH REMINDERS. HOURLY ROUNDING OBSERVED. BED IN LOW POSITION. CALL LIGHT WITHIN REACH. BED ALARM IN PLACE. FALL PRECAUTIONS IN PLACE. WILL CONTINUE PLAN OF CARE.
[2021-08-26 20:00] VITALS: BP 121/51
[2021-08-26 23:41] VITALS: BP 106/47
--- NOTE | 2021-08-27 02:17 | NUR ---
O2 AT 7 LITERS HEATED HIGH FLOW. O2 SATS 94-97% PT RESTING INTERMITTRMTLY. CARTOGRAPHY/MAPPING TECHNICIAN TRACING SR.
[2021-08-27 06:40] VITALS: BP 102/50
[2021-08-27 08:00] VITALS: BP 119/57
[2021-08-27 12:00] VITALS: BP 90/43
[2021-08-27 16:20] VITALS: BP 122/59
--- NOTE | 2021-08-27 18:25 | NUR ---
PT HAS REMAINED ON 6-7 L THROUGHOUT SHIFT. CURRENTLY ON 7L AT THIS TIME. UNABLE TO TITRATE. SHORTNESS OF BREATH WITH EXERTION NOTED. PULM CONSULT IN PLACE. PT SAT UP IN CHAIR FOR MEALS. TOLERATED FAIR. UP TO BSC WITH 1 ASSIST. DENIES ANY PAIN. AM ASSESSMENT CHARTED. MEDICATIONS PER DEC. PT REPOSITIONS SELF WITH REMINDERS. HOURLY ROUNDING OBSERVED. BED IN LOW POSITION. CALL LIGHT WITHIN REACH. WILL CONTINUE PLAN OF CARE.
[2021-08-27 20:00] VITALS: BP 112/60
[2021-08-28] VITALS: BP 101/49
[2021-08-28 04:00] VITALS: BP 116/40
--- NOTE | 2021-08-28 04:14 | NUR ---
PT REMAINS ON 6 LITERS NC. ALERT ORIENTED. UP WITH STAND BY ASSIST. BERHANE FARNSWORTH. ABATTOIR SUPERVISOR TRACING SR.
[2021-08-28 04:35] LABS: HEMOGLOBIN 11.4 gm/dL (12.0-15.0); MCH 31.7 pg (26.0-34.0); MCHC 32.7 g/dL (28.0-37.0); MPV 7.2 fl. (7.2-11.1); RBC 3.61 mil/uL (4.20-5.00); RDW-CV 14.8 % (10.5-14.5); WBC 9.5 thou/uL (4.0-11.0)
[2021-08-28 04:53] LABS: ALBUMIN 2.4 g/dL (3.4-5.0); CALCIUM 8.3 mg/dL (8.5-10.1); CREATININE 0.7 mg/dL (0.6-1.3); MAGNESIUM 2.2 mg/dL (1.8-2.4); POTASSIUM 4.8 mmol/L (3.5-5.1); TOTAL BILIRUBIN 0.3 mg/dL (<0.1-1.0); TOTAL PROTEIN 5.7 g/dL (6.4-8.2)
--- NOTE | 2021-08-28 07:20 | NUR ---
CHANGE OF SHIFT REPORT GIVEN POATIENT SEEN AT BEDSIDE, IN BED ASLEEP ASSUMED PATIENT CARE
[2021-08-28 08:00] VITALS: BP 131/56
[2021-08-28 12:00] VITALS: BP 109/53
--- NOTE | 2021-08-28 15:11 | NUR ---
CM ASSESSMENT: PT A&O, NORMLALLY INDEPENDENT WITH ADL'S AND ACTIVE. PT RESIDES AT HOME ALONE. PT USES WALKER FOR MOBILITY, BUT ALSO OWNS A CANE. PT HAS PAST HX OF HH, BUT COULD NOT RECALL THE NAME. PT HAS 0 HX OF SNF. CM SPOKE TO THE PT TO DISCUSS POC AND D/C PLANNING, AND PT REQUEST TO D/C TO SNF, HER DTR IS IN THE PROCESS OF MOVING AND IS UNABLE TO ASSIST HER AT THIS TIME. PT CHOSE SNF AT [facility] OR [facility]. CM FAXED REFERRAL TO [facility] AND AWAITING A CALLBACK TO DISCUSS ABILITY TO ACCEPT PT. CM WILL REMAIN AVAILABLE TO ASSIST AND FOLLOW NEEDED.
[2021-08-28 16:00] VITALS: BP 119/54
[2021-08-28 20:00] VITALS: BP 104/53
[2021-08-29] VITALS: BP 101/44
[2021-08-29 03:30] VITALS: BP 112/54
--- NOTE | 2021-08-29 05:19 | NUR ---
Alert and oriented x 4. She is up with stand by asslst to the bedside commode. She did request a pure wick for urine incontinence. She also requested eye drops which were ordered. She continues to be on O2 at 5L n/c,but she did refuse bipap. Lungs have fine crackles in bilat bases. She has slept well this shift.
--- NOTE | 2021-08-29 06:35 | NUR ---
This am she had a moderate BM. She did say that her coccyx area is sore. It does have some discoloration, barrier cream applied.
[2021-08-29 08:15] VITALS: BP 113/50
[2021-08-29 11:44] VITALS: BP 98/50
--- NOTE | 2021-08-29 12:47 | NUR ---
PLAN OF CARE: PHYSICIAN INFORMS THAT THE PT MAY BA MEDICALLY STABLE TO D/C TO SNF TOMORROW. HOWEVER PT/OT UPDATES NEEDED TO ASSIST WITH OBTAINING INSURANCE AUTH FOR SNF. PT/OT AND NURSING INFORMED. CM TO FAX UPDATED PT/OT NOTES WHEN AVAILABLE, WELL SUBMIT THIS CLINCIAL INFO TO [email or web address] TO ASSIST WITH AUTH. CM WILL REMAIN AVAILABLE TO ASSIST AND FOLLOW NEEDED.
[2021-08-29 16:52] VITALS: BP 107/55
--- NOTE | 2021-08-29 18:16 | NUR ---
NO ACUTE EVENTS THROUGHOUT SHIFT. PT REMAINED ON 5L NC SAT MID 90'S. POSSIBLE DISCHARGE TO SNF TOMORROW 08/30. TRACING SR ON THE DIRECTOR SOFTWARE. A&0X4, DENIES ANY PAIN OR SHORTNESS OF BREATH. PT UP SBA TO BSC. AM ASSESSMENT CHARTED. MEDICATIONS PER DEC. PT REPOSITIONS SELF WITH REMINDERS. HOURLY ROUNDING OBSERVED. BED IN LOW POSITION. CALL LIGHT WITHIN REACH. FALL PRECAUTIONS IN PLACE. WILL CONTINUE PLAN OF CARE.
[2021-08-30 04:00] VITALS: BP 112/50
[2021-08-30 12:00] VITALS: BP 101/48
[2021-08-30 16:00] VITALS: BP 112/54
[2021-08-30 17:08] LABS: HEMATOCRIT 39.4 % (37.0-47.0); HEMOGLOBIN 12.9 gm/dL (12.0-15.0); MCH 31.2 pg (26.0-34.0); MCHC 32.7 g/dL (28.0-37.0); MCV 95.2 fL (80.0-100.0); MPV 7.3 fl. (7.2-11.1); NUCLEATED RBCS 0 /100WBC; PLATELET COUNT* 377 thou/uL (150-400); RBC 4.14 mil/uL (4.20-5.00); RDW-CV 14.5 % (10.5-14.5); WBC 8.7 thou/uL (4.0-11.0)
[2021-08-30 17:20] LABS: ALBUMIN 2.7 g/dL (3.4-5.0); CALCIUM 8.3 mg/dL (8.5-10.1); CREATININE 0.7 mg/dL (0.6-1.3); POTASSIUM 5.1 mmol/L (3.5-5.1); TOTAL BILIRUBIN 0.5 mg/dL (<0.1-1.0); TOTAL PROTEIN 6.3 g/dL (6.4-8.2)
[2021-08-30 17:59] LABS: ABSOLUTE LYMPHOCYTES 1.2 thou/uL (0.8-5.3); ABSOLUTE MONOCYTES 0.7 thou/uL (0.0-1.2); ABSOLUTE NEUTROPHILS 6.8 thou/uL (1.6-8.1)
[2021-08-30 18:00] LABS: PLATELET ESTIMATE ADEQUATE
[2021-08-30 20:00] VITALS: BP 96/60
[2021-08-31 00:36] VITALS: BP 110/83
[2021-08-31 04:00] VITALS: BP 120/64
[2021-08-31 04:47] LABS: HEMATOCRIT 40.8 % (37.0-47.0); HEMOGLOBIN 13.3 gm/dL (12.0-15.0); MCH 31.3 pg (26.0-34.0); MCHC 32.7 g/dL (28.0-37.0); MCV 95.7 fL (80.0-100.0); MPV 7.2 fl. (7.2-11.1); RBC 4.27 mil/uL (4.20-5.00); RDW-CV 15.1 % (10.5-14.5); WBC 10.5 thou/uL (4.0-11.0)
--- NOTE | 2021-08-31 04:50 | NUR ---
ASSUMED CARE OF PT AFTER REPORT AT 1930. PT A&OX4. VS.S PHYSICAL ASSESSMENT COMPLETED AND CHARTED. PT ON O2 AT 5L NC/BIPAP AT HS. PT TRACING SR/PAC ON TELE. PT DENIES ANY PAIN. FALL PRECAUTIONS IN PLACE. PT ABLE TO SLEEP WELL ON BED. CALL LIGHT WITHIN REACH.
[2021-08-31 05:13] LABS: ALBUMIN 2.8 g/dL (3.4-5.0); CALCIUM 8.8 mg/dL (8.5-10.1); CREATININE 0.6 mg/dL (0.6-1.3); MAGNESIUM 2.1 mg/dL (1.8-2.4); POTASSIUM 4.4 mmol/L (3.5-5.1); TOTAL BILIRUBIN 0.5 mg/dL (<0.1-1.0); TOTAL PROTEIN 6.5 g/dL (6.4-8.2)
[2021-08-31 09:00] VITALS: BP 110/54
[2021-08-31 12:00] VITALS: BP 94/41
--- NOTE | 2021-08-31 15:01 | NUR ---
PLAN OF CARE: PHYSICIAN INFORMS THAT THE PT MAY BE MEDICALLY STABLE FOR D/C TOMORROW TO [facility]. ISM INFORMS OF ABILITY TO ACCEPT THE PT PENDING RECEIVING ORDER AND SETTINGS FOR BIPAP. CM WILL REMAIN AVAILABLE TO ASSIST AND FOLLOW NEEDED.
[2021-08-31 16:00] VITALS: BP 110/69
[2021-08-31 20:00] VITALS: BP 96/49
[2021-09-01 03:16] VITALS: BP 100/53
--- NOTE | 2021-09-01 05:33 | NUR ---
PT A&O X 4. O2 SAT STABLE ON 5L THEN BIPAP @NOC. MEDS GIVEN ORDERED. NO C/O PAIN. UP TO BSC WITH SBA. NPO SINCE MIDNIGHT FOR BARRIUM STUDY. PT SLEPT ON AND OFF. CALL LIGHT WITHIN REACH. WILL CONTINUE TO MONITOR.
[2021-09-01 05:46] LABS: ABSOLUTE LYMPHOCYTES 0.8 thou/uL (0.8-5.3); ABSOLUTE MONOCYTES 0.4 thou/uL (0.0-1.2); BASOPHILS 0.1 %; HEMATOCRIT 38.3 % (37.0-47.0); HEMOGLOBIN 12.5 gm/dL (12.0-15.0); LYMPHOCYTES 7.4 %; MCH 31.4 pg (26.0-34.0); MCHC 32.7 g/dL (28.0-37.0); MCV 95.9 fL (80.0-100.0); MONOCYTES 3.7 %; MPV 7.3 fl. (7.2-11.1); NUCLEATED RBCS 0 /100WBC; PLATELET COUNT* 364 thou/uL (150-400); POLYS 88.8 %; RBC 3.99 mil/uL (4.20-5.00); RDW-CV 14.5 % (10.5-14.5); WBC 11.2 thou/uL (4.0-11.0)
[2021-09-01 05:59] LABS: ALBUMIN 3.1 g/dL (3.4-5.0); CREATININE 0.7 mg/dL (0.6-1.3); POTASSIUM 4.5 mmol/L (3.5-5.1); TOTAL BILIRUBIN 0.5 mg/dL (<0.1-1.0); TOTAL PROTEIN 6.5 g/dL (6.4-8.2)
[2021-09-01 06:24] VITALS: BP 107/45
[2021-09-01 08:00] VITALS: BP 119/59
--- NOTE | 2021-09-01 13:16 | NUR ---
Nutrition: screen for LOS. Pt reported good appetite and intake. Denied nutrition concerns. Prednisone and other meds reviwed. CO2 and BUN high, albumin 3.1, prealbumin WNL. Assessed at low nutrition risk at this time.
[2021-09-01 16:00] VITALS: BP 106/48
--- NOTE | 2021-09-01 16:20 | NUR ---
PLAN OF CARE: PHYSICIAN INFORMS OF PLAN FOR PT TO POSSIBLY D/C TO SNF AT [facility] PENDING INPROVEMENT IN PT'S RESPIRATORY STATUS. REST AND EX OX ORDERED. PT WILL NEED BIPAP SETTINGS WRITTEN FOR SNF TO OBTAIN BIPAP FOR THE PT PRIOR TO D/C. PULM INFORMED. CM WILL REMAIN AVAILABLE TO ASSIST AND FOLLOW NEEDED.
[2021-09-01 19:25] VITALS: BP 104/52
--- NOTE | 2021-09-02 04:06 | NUR ---
PT A&OX4, VSS ON 5L O2 NC - BIPAP WHILE SLEEPING, IV SALINE LOCKED. NO CO PAIN OR DISCOMFORT. PT SLEEPING WELL, WILL CONTINUE TO MONITOR.
[2021-09-02 09:00] VITALS: BP 108/56
[2021-09-02 12:00] VITALS: BP 103/41
[2021-09-02 16:00] VITALS: BP 102/52
[2021-09-02 16:15] VITALS: BP 112/47
[2021-09-02 21:00] VITALS: BP 108/53
[2021-09-03 01:40] VITALS: BP 100/52
[2021-09-03 07:39] LABS: ABSOLUTE LYMPHOCYTES 1.6 thou/uL (0.8-5.3); ABSOLUTE NEUTROPHILS 9.4 thou/uL (1.6-8.1); BASOPHILS 0.1 %; EOSINOPHILS 0.1 %; HEMATOCRIT 40.2 % (37.0-47.0); LYMPHOCYTES 13.1 %; MCH 30.8 pg (26.0-34.0); MCHC 32.4 g/dL (28.0-37.0); MCV 95.3 fL (80.0-100.0); MONOCYTES 8.7 %; MPV 7.1 fl. (7.2-11.1); NUCLEATED RBCS 0 /100WBC; PLATELET COUNT* 388 thou/uL (150-400); RBC 4.22 mil/uL (4.20-5.00); RDW-CV 14.9 % (10.5-14.5); WBC 12.1 thou/uL (4.0-11.0)
[2021-09-03 07:55] LABS: ALBUMIN 3.4 g/dL (3.4-5.0); CALCIUM 9.1 mg/dL (8.5-10.1); CREATININE 0.7 mg/dL (0.6-1.3); MAGNESIUM 2.2 mg/dL (1.8-2.4); POTASSIUM 4.1 mmol/L (3.5-5.1); TOTAL BILIRUBIN 0.4 mg/dL (<0.1-1.0); TOTAL PROTEIN 7.1 g/dL (6.4-8.2)
[2021-09-03 09:00] VITALS: BP 121/46
[2021-09-03] MEDS ORDERED: PROTONIX40 M2 PO (10:35)
[2021-09-03] MEDS ORDERED: PREDNISONE 10 M10 MG PO (10:38)
[2021-09-03 11:35] VITALS: BP 96/43
--- NOTE | 2021-09-03 15:48 | NUR ---
ASSUMED PT CARE AT 0730. PT IS PLEASANTLY A&OX4.. PT IS UP AD CHICA TO BATHROOM. PT CONTINUES TO REQUIRE O2 AT 10 LITERS WHEN RT REST AND EXERCISE. ASSESSMENT COMPLETED. MEDICATIONS ADMINISTERED ORDERED. CONTINENT OF B&B. SAFETY MEASURES IN PLACE AND PT VERBALIZES UNDERSTANDING TO PROMOTE SAFETY.
[2021-09-03 16:00] VITALS: BP 107/42
[2021-09-03 20:00] VITALS: BP 116/49
[2021-09-04 08:38] VITALS: BP 127/53
[2021-09-04] MEDS ORDERED: XANAX 0.25 MG0.25 MG PO ×2 (10:38)
--- NOTE | 2021-09-04 16:10 | NUR ---
PLAN FOR THE PT TO D/C TODAY TO [facility]. [facility] ARRANGED TRANSPORT FOR [id number]. RN TO CALL REPORT. CM WILL REMAIN AVAILABLE TO ASSIST AND FOLLOW NEEDED.
== END 2021-09-04 16:32 | DRG 177 ==
LOC: M.ERS 15:44 → M.2W 16:42 → M.TBA-ER 16:42 → M.2W 08-23 23:14
PROVIDERS: Family Medicine; Internal Medicine; Internal Medicine Critical Care Medicine; ADMIT Internal Medicine; ATTEND Internal Medicine
DX: J15.6 Pneumonia due to other Gram-negative bacteria (principal); J96.21 Acute and chronic respiratory failure with hypoxia; E43 Unspecified severe protein-calorie malnutrition; I50.33 Acute on chronic diastolic (congestive) heart failure; Z20.822 Contact with and (suspected) exposure to COVID-19; Z96.642 Presence of left artificial hip joint; M81.0 Age-related osteoporosis without current pathological fracture; E78.5 Hyperlipidemia, unspecified; E78.00 Pure hypercholesterolemia, unspecified; I27.20 Pulmonary hypertension, unspecified; J43.9 Emphysema, unspecified; K22.2 Esophageal obstruction; I11.0 Hypertensive heart disease with heart failure; R73.9 Hyperglycemia, unspecified; I27.81 Cor pulmonale (chronic); R13.19 Other dysphagia; Z98.42 Cataract extraction status, left eye; Z98.41 Cataract extraction status, right eye; Z90.710 Acquired absence of both cervix and uterus; Z87.891 Personal history of nicotine dependence; Z68.20 Body mass index [BMI] 20.0-20.9, adult; Z79.899 Other long term (current) drug therapy

== ENCOUNTER 2021-09-28 17:32 | Inpatient (IN) | payer OTHER ==
[~2021-09-28] VITALS: Ht 152.4 cm; Wt 51.3 kg
[~2021-09-28 17:32] MED LIST changes: +PREDNISONE 10 M10 MG PO; +PROTONIX40 M2 PO; +XANAX 0.25 MG0.25 MG PO
[2021-09-28 17:36] VITALS: BP 126/62
[2021-09-28 18:12] LABS: HEMATOCRIT 37.9 % (37.0-47.0); HEMOGLOBIN 12.7 gm/dL (12.0-15.0); MCH 31.7 pg (26.0-34.0); MCHC 33.4 g/dL (28.0-37.0); MCV 94.7 fL (80.0-100.0); MPV 7.3 fl. (7.2-11.1); NUCLEATED RBCS 0 /100WBC; PLATELET COUNT* 446 thou/uL (150-400); RDW-CV 14.9 % (10.5-14.5)
[2021-09-28 18:17] LABS: CALCIUM 8.9 mg/dL (8.5-10.1); CREATININE 0.8 mg/dL (0.6-1.3); POTASSIUM 3.7 mmol/L (3.5-5.1)
[2021-09-28 18:28] LABS: ALBUMIN 3.1 g/dL (3.4-5.0); TOTAL BILIRUBIN 0.5 mg/dL (<0.1-1.0); TOTAL PROTEIN 6.6 g/dL (6.4-8.2)
[2021-09-28 18:30] LABS: INFLUENZA A ANTIGEN Negative (Negative); INFLUENZA B ANTIGEN Negative (Negative)
[2021-09-28 18:47] LABS: ABSOLUTE LYMPHOCYTES 2.3 thou/uL (0.8-5.3); ABSOLUTE MONOCYTES 1.1 thou/uL (0.0-1.2); ABSOLUTE NEUTROPHILS 7.6 thou/uL (1.6-8.1); ATYPICAL LYMPHS 5 %; PLATELET ESTIMATE ADEQUATE
--- NOTE | 2021-09-28 21:39 | NUR ---
PROVIDING PERICARE; PT WITH MOVEMENT SUDDEN DESAT INTO 70'S; APPLIED NON-BREATHER SAT UP AND COUCHED BREATHING; PT SATS RETURNED TO 100%; BREATHING TREATMENT ORDERED; MONITOR TRACING ST 103
[2021-09-28 22:24] VITALS: BP 117/53
--- NOTE | 2021-09-28 22:30 | NUR ---
RECEIVED REPORT FROM ER, PT TO ROOM PER CART. O2 ON AT 6L/HFC. SOA WITH ANY ACTIVITY. SEE ADMISSION ASSESSMENT AND HX. WILL CONT TO MONITOR AND ASSIST NEEDED.
[2021-09-28 22:57] VITALS: BP 117/53
[2021-09-28 23:30] VITALS: BP 105/57
[2021-09-29 04:00] VITALS: BP 105/63
[2021-09-29 08:30] VITALS: BP 105/55
--- NOTE | 2021-09-29 09:24 | EKG ---
[place] [address] ELECTROCARDIOGRAM REPORT Name: RADHIKA STONE Room: [address] ADM IN .R.#: [id number] Admission: 09/28/21 Attend Phys: Jameel Willard Discharge: Date of : 44 Date of Service: 09/28/21 1735 Report #: [id number] THIS REPORT FOR: //name// [facility] ED Test Date: 2021-09-28 Test Time: 17:35:47 Pat Name: RADHIKA STONE Department: Room: [facility] Gender: F Human Resources Training Manager: TJO : 1940 Requested By: Jamari Velasquez Order Number: [id number] MD: Singh Chavarria Measurements Intervals [place] Rate: 106 P: 59 OK: 127 QRS: 66 QRSD: 91 T: 15 QT: 317 QTc: 421 Interpretive Statements Sinus tachycardia Probable left atrial enlargement Abnormal R-wave progression, late transition Nonspecific ST-T abnormalities Compared to ECG 08/22/2021 16:13:47 No significant interval change Electronically Signed On 09-29-2021 9:24:05 PUBLIC HEALTH DOCTOR by Singh Chavarria [email or web address] <ELECTRONICALLY SIGNED> By: Singh Chavarria MD, FAC 09/29/21 0924 1735 1735 Singh Chavarria MD, FAC /EPI
--- NOTE | 2021-09-29 09:27 | NUR ---
Pt is admitted to the hospital on 09/28/21 with CHF, COPD, and Pneumonia. Pt is a re-admit. Pt was discharged from our facility on 09/04/[address] [facility] and she was discharged home approximately a week ago with [facility] . (Pt has likely used 20 SNF days). Pt lives alone in a house. She is alert, oriented x3, but AKHIOK. Pt last saw her PCP about a week ago. Pt fills prescriptions at the [facility] in [place]. Pt has oxygen/Bipap at home through [facility]. Called [facility] and informed them pt was in the hospital and that we would keep them updated in regards to discharge/fax resumption orders. Anticipating home with home katlin vs SNF (Since pt didn't have a 60 day break she has not regenerated SNF days, and likely will be into her co-pay days at $185.50 per day. CM to follow for discharge planning.
[2021-09-29 12:00] VITALS: BP 101/56
[2021-09-29 16:00] VITALS: BP 112/47
[2021-09-29 16:04] LABS: ABSOLUTE LYMPHOCYTES 1.4 thou/uL (0.8-5.3); ABSOLUTE MONOCYTES 1.6 thou/uL (0.0-1.2); ABSOLUTE NEUTROPHILS 9.2 thou/uL (1.6-8.1); BASOPHILS 0.2 %; HEMATOCRIT 35.4 % (37.0-47.0); HEMOGLOBIN 11.8 gm/dL (12.0-15.0); LYMPHOCYTES 11.8 %; MCH 31.1 pg (26.0-34.0); MCHC 33.4 g/dL (28.0-37.0); MCV 93.1 fL (80.0-100.0); MONOCYTES 12.7 %; NUCLEATED RBCS 0 /100WBC; PLATELET COUNT* 406 thou/uL (150-400); POLYS 75.3 %; RDW-CV 14.7 % (10.5-14.5); WBC 12.2 thou/uL (4.0-11.0)
[2021-09-29 16:17] LABS: APTT 26.5 Seconds (25.0-31.3); INR 1.1; PROTIME 11.1 Seconds (9.20-11.50)
[2021-09-29 16:19] LABS: ALBUMIN 2.7 g/dL (3.4-5.0); CALCIUM 8.8 mg/dL (8.5-10.1); CREATININE 0.8 mg/dL (0.6-1.3); POTASSIUM 3.5 mmol/L (3.5-5.1); TOTAL BILIRUBIN 0.3 mg/dL (<0.1-1.0); TOTAL PROTEIN 6.2 g/dL (6.4-8.2)
--- NOTE | 2021-09-29 18:13 | NUR ---
PT ON 5-6L THROUGHOUT SHIFT. BASELINE IS 4L REST, 6L W AMBULATION. PTS DAUGHTER UPDATED THIS SHIFT VIA PT REQ. ALERT, ORIENTED. AMBULATE WITH X1 ASSIST TO BSC. IV SL.
[2021-09-29 20:00] VITALS: BP 97/52
[2021-09-30] VITALS: BP 100/55
[2021-09-30 04:00] VITALS: BP 118/63
--- NOTE | 2021-09-30 04:36 | NUR ---
PT RESTING WITH HOB ELEVATED. O2 ON AT 6L/NC, DECREASED TO 4L/NC PER PT REQUEST. STATES AT HOME WEARS 4-6L AND BLOWING TO STRONG. MAINTAINS SAT 90%. C/O BACK PAIN, NO MEDS REQUESTED. PUREWICK IN PLACE PER PT REQUEST. TELEMETRY ON SHOWING ST TO SR. GURVINDER LOWER LEGS ELEVATED ON PILLOW. NOTED RT LEG WITH 2+ EDEMA AND LT 1+, WITH BOTH LEGS SCABS FROM PREVIOUS EDEMA WITH BLISTERS WEEPING.
[2021-09-30 04:37] LABS: HEMATOCRIT 34.1 % (37.0-47.0); HEMOGLOBIN 11.2 gm/dL (12.0-15.0); MCH 31.4 pg (26.0-34.0); MCHC 32.9 g/dL (28.0-37.0); MCV 95.4 fL (80.0-100.0); MPV 7.1 fl. (7.2-11.1); RBC 3.57 mil/uL (4.20-5.00); RDW-CV 14.7 % (10.5-14.5); WBC 9.9 thou/uL (4.0-11.0)
[2021-09-30 05:06] LABS: CALCIUM 8.6 mg/dL (8.5-10.1); CREATININE 0.7 mg/dL (0.6-1.3); POTASSIUM 3.9 mmol/L (3.5-5.1)
[2021-09-30 08:00] VITALS: BP 97/57
--- NOTE | 2021-09-30 11:30 | NUR ---
PAGED DR SHIN RE: PT REFUSED CTA CHEST FOR PE PROTOCOL BECAUSE PT STATES UNABLE TO LIE FOR EXAM, EVEN WITH ELEVEATED PILLOWS. DR SHIN NOT SUPERVISOR PASTE PLANT PER ANSWERING SERVICE, DR TORRES IS. DR TORRES NOTIFIED VIA OFFICE SYSTEM.
[2021-09-30 12:00] VITALS: BP 112/44
[2021-09-30 15:45] VITALS: BP 111/59
[2021-09-30 20:00] VITALS: BP 114/59
[2021-10-01 00:15] VITALS: BP 122/60
[2021-10-01 04:00] VITALS: BP 119/70
--- NOTE | 2021-10-01 05:20 | NUR ---
ASSUMED PT CARE AT APPROX 1930. PT IS AWAKE AND ORIENTED X4. PT IS TRACING SR ON THE CHROME PLATER. PT IS ON 6L OF O2, IS SHORT OF AIR WITH ACTIVITY AND DESARTURATES TO THE UPPER 80s WITH ACTIVITY. NO ACUTE CHANGES THROUGHOUT THE NIGHT. CALL LIGHT WITHIN REACH. HOURLY ROUNDING DONE FOR PT SAFETY. HIGH FALL PRECAUTIONS IN PLACE.
[2021-10-01 06:46] LABS: ABSOLUTE LYMPHOCYTES 0.5 thou/uL (0.8-5.3); ABSOLUTE MONOCYTES 0.2 thou/uL (0.0-1.2); ABSOLUTE NEUTROPHILS 8.1 thou/uL (1.6-8.1); BASOPHILS 0.1 %; HEMATOCRIT 37.7 % (37.0-47.0); HEMOGLOBIN 12.4 gm/dL (12.0-15.0); MCH 31.6 pg (26.0-34.0); MCV 95.7 fL (80.0-100.0); MONOCYTES 1.9 %; MPV 7.3 fl. (7.2-11.1); NUCLEATED RBCS 0 /100WBC; PLATELET COUNT* 437 thou/uL (150-400); RBC 3.94 mil/uL (4.20-5.00); RDW-CV 14.4 % (10.5-14.5); WBC 8.8 thou/uL (4.0-11.0)
[2021-10-01 06:51] LABS: CREATININE 0.7 mg/dL (0.6-1.3); POTASSIUM 4.5 mmol/L (3.5-5.1)
[2021-10-01 08:00] VITALS: BP 118/61
[2021-10-01 11:40] VITALS: BP 102/49
[2021-10-01 16:12] VITALS: BP 107/51
[2021-10-01 19:59] VITALS: BP 109/55
[2021-10-02] VITALS: BP 118/62
[2021-10-02 04:00] VITALS: BP 122/60
[2021-10-02 04:44] LABS: HEMATOCRIT 35.4 % (37.0-47.0); HEMOGLOBIN 11.6 gm/dL (12.0-15.0); MCH 31.2 pg (26.0-34.0); MCHC 32.9 g/dL (28.0-37.0); MCV 94.8 fL (80.0-100.0); MPV 7.4 fl. (7.2-11.1); RBC 3.73 mil/uL (4.20-5.00); RDW-CV 14.9 % (10.5-14.5); WBC 14.5 thou/uL (4.0-11.0)
[2021-10-02 05:13] LABS: CALCIUM 8.6 mg/dL (8.5-10.1); CREATININE 0.7 mg/dL (0.6-1.3); POTASSIUM 4.2 mmol/L (3.5-5.1)
[2021-10-02 08:00] VITALS: BP 116/59
[2021-10-02 12:00] VITALS: BP 116/50; BP 135/76
--- NOTE | 2021-10-02 14:46 | NUR ---
PLAN OF CARE: PHYSICIAN INFORMS THAT PT NOT CURRENTLY MEDICALLY STABLE. P.T. F/U NEEDED TO ASSIST WITH D/C PLANNING INFORMS THAT PT ABLE TO WORK WITH P.T. HOWEVER PT'S O2 SAT'S DROP SIGNIFICANTLY. THIS MAY PRESENT A BARRIER TO PT'S D/C PLANNING NEEDS SHOULD SHE NEED SNF AT D/C. PT HAS USED ALL OF HER 100% COVERED SNF DAYS AND IS NOW INTO HER CO-PAY DAYS ($185 PER DAY). PT HAS BEEN INFORMED OF THIS. PT IS HOPEFUL TO BE ABLE TO RETURN HOME AT D/C WITH HH. CM WILL REMAIN AVAILABLE TO ASSIST AND FOLLOW NEEDED.
[2021-10-02 16:00] VITALS: BP 104/49
--- NOTE | 2021-10-02 16:18 | NUR ---
WOUND NURSE: PATIENT SEEN TO ADDRESS WOUND ON LEFT BUTTOCK. MEASURES 0.5 X 0.5 X 0.1CM. PRESENTS WITH THIN DRY CRUST OVER SHALLOW EROSION WITH PARTIAL THICKNESS TISSUE LOSS. HEALING STAGE 2 PRESSURE INJURY. DRESSING APPLIED PRESCRIBED. PATIENT INSTRUCTED ON MEASURES TO PROMOTE HEALING AND PREVENT COMPLICATIONS. STATES SHE UNDERSTANDS.
--- NOTE | 2021-10-02 16:40 | NUR ---
THIS RN AGREES WITH THE CHARTING COMPLETED BY BEVERLEY GONZALEZ ON 10/02/21
[2021-10-02 20:15] VITALS: BP 113/53
[2021-10-03 02:05] VITALS: BP 108/55
[2021-10-03 04:23] LABS: HEMATOCRIT 35.1 % (37.0-47.0); HEMOGLOBIN 11.5 gm/dL (12.0-15.0); MCH 31.3 pg (26.0-34.0); MCHC 32.9 g/dL (28.0-37.0); MCV 95.2 fL (80.0-100.0); MPV 7.3 fl. (7.2-11.1); RBC 3.68 mil/uL (4.20-5.00); RDW-CV 14.8 % (10.5-14.5); WBC 13.9 thou/uL (4.0-11.0)
[2021-10-03 05:04] LABS: CALCIUM 8.7 mg/dL (8.5-10.1); CREATININE 0.7 mg/dL (0.6-1.3); POTASSIUM 4.6 mmol/L (3.5-5.1)
[2021-10-03 05:29] VITALS: BP 106/55
[2021-10-03 08:00] VITALS: BP 111/48
[2021-10-03 12:00] VITALS: BP 114/60
[2021-10-03 16:00] VITALS: BP 115/53
--- NOTE | 2021-10-03 16:21 | NUR ---
ADOLFO SPK WITH PT AND HER DTR, LORE, AND INFORMED THE ARU DECLINED AND PT RECOMMEDATIONS WAS FOR PT TO D/C TO SNF. PT AGREEABLE AND WANTED ME TO CALL HER DTR. LORE STATED SHE WASNT SURE SHE SEEN MUCH OF AN IMPROVEMENT FROM WHEN MOM D/C FROM [facility] LAST WEEK. SO NOT SURE IF SNF IS NECESSARY SHE WILL TALK WITH PT AND THEN DECIDED AT A LATER DATE. PT HAS 4l OF O2 AT HOME AT REST AND UP TO 6l WITH EXERCETION. LORE BELIEVES "THAT THE HIGHEST HER TANK GOES TO."
--- NOTE | 2021-10-03 18:38 | NUR ---
THIS RN AGREES WITH THE CHARTING COMPLETED BY BEVERLEY GONZALEZ ON 10/03/21
--- NOTE | 2021-10-03 18:57 | NUR ---
VQ SCAN RESULTS NOTED-DR PRADO NOTIFIED.
[2021-10-03 20:00] VITALS: BP 107/52
[2021-10-04] VITALS: BP 107/56
[2021-10-04 04:00] VITALS: BP 128/87
[2021-10-04 08:00] VITALS: BP 115/55
--- NOTE | 2021-10-04 11:09 | NUR ---
PT IS COUGHING UP SOME BLOOD AND DID NOT WANT BREATHING TX TO CAUSE MORE COUGHING. NURSE IS AWARE OF ISSUE. PT'S SATS WAS 94% ON 7L AND SHE WAS ALERT AND ORIENTED.
[2021-10-04 12:00] VITALS: BP 107/60
--- NOTE | 2021-10-04 13:52 | NUR ---
Met with pt to discuss discharge plan. Pt is currently on 9 liters of oxygen and is waiting to be taken down for a test. Pt reports she is coughing up blood today. Discussed SNF vs home with HH. Pt is reporting her daughter is stating that she will take pt home with her and she can resume HH. Discussed dates she was at [facility]. Upon admission (09/28/21) she had stated she had been discharged just a week ago. Called Christelle at [facility] and she reports pt was actually at [facility] from 09/04/21 - 10/03 (pt actually had discharged 2 weeks prior from [facility] SNF instead of one week prior as she previously stated. Pt has used approximately 11 SNF days and would have approximately 9 SNF Days left covered at 100%. Pt is currently active with [facility] . CM to continue to follow for discharge planning. discharge planning.
[2021-10-04 17:16] VITALS: BP 119/62
--- NOTE | 2021-10-04 19:04 | NUR ---
THIS RN AGREES WITH THE CHARTING COMPLETED BY BEVERLEY GONZALEZ ON 10/04/21
[2021-10-04 20:00] VITALS: BP 111/64
[2021-10-05] VITALS: BP 123/53; BP 150/90
[2021-10-05 04:00] VITALS: BP 110/59
[2021-10-05 06:02] LABS: HEMATOCRIT 37.9 % (37.0-47.0); HEMOGLOBIN 12.3 gm/dL (12.0-15.0); MCH 31.2 pg (26.0-34.0); MCHC 32.3 g/dL (28.0-37.0); MCV 96.4 fL (80.0-100.0); MPV 7.4 fl. (7.2-11.1); RBC 3.93 mil/uL (4.20-5.00); RDW-CV 15.2 % (10.5-14.5); WBC 12.2 thou/uL (4.0-11.0)
[2021-10-05 06:17] LABS: CALCIUM 8.2 mg/dL (8.5-10.1); CREATININE 0.7 mg/dL (0.6-1.3); POTASSIUM 4.5 mmol/L (3.5-5.1)
[2021-10-05 08:15] VITALS: BP 111/51
[2021-10-05 12:00] VITALS: BP 105/54
[2021-10-05 16:00] VITALS: BP 93/73
[2021-10-05 20:00] VITALS: BP 114/60
[2021-10-06 02:46] VITALS: BP 116/57
[2021-10-06 05:55] VITALS: BP 118/51
[2021-10-06] MEDS ORDERED: FLEXERIL PO (09:51)
[2021-10-06] MEDS ORDERED: PREDNISONE 10 M10 MG PO (10:13)
[2021-10-06 11:25] VITALS: BP 114/55
--- NOTE | 2021-10-06 12:48 | NUR ---
Pt and family want hospice and have selected [facility] ([facility]). Faxed referral to: [phone]. Received call back from Marcella who reports she will call daughter as pt is discharging to daughter's address: [address] [facility] [address] Pt is already on oxygen through [facility]. Marcella is to call daughter and order any equipment they may need. [facility] has a copy of the discharge summary which has Hospice Orders. Anticipate discharge today.
[2021-10-06 12:51] VITALS: BP 114/55
[2021-10-06 14:06] VITALS: BP 114/55
--- NOTE | 2021-10-06 15:47 | NUR ---
DISCONTINUE IV AND TELE. PT WILL DISCHARGE TO HOME HOSPICE THIS EVENING.
--- NOTE | 2021-10-08 21:54 | CON ---
[address] [address] CONSULTATION Name: RADHIKA STONE Alyssa Room: [address] IN M.R.#: [id number] Admission: 09/28/21 Attend Phys: Tate Mckeon Discharge: 10/06/21 Date of : 44 Report #: [id number] THIS REPORT FOR: cc: Chauncey Iniguez Adam J DO Pervez, Adeel MD ~ DATE OF CONSULTATION: 09/29/2021 INDICATION FOR CONSULTATION: Acute on chronic hypoxemic respiratory failure. HISTORY OF PRESENT ILLNESS: A 81-year-old female seen her in previous hospitalizations in this hospital and in the office as well. She has end-stage COPD, also does have pulmonary fibrosis, is on oxygen long-term. She was recently admitted to this hospital and then transferred to a long-term care facility and eventually went home. She is on long-term prednisone therapy. She again has desaturation hypoxemia and increasing shortness of breath and therefore is admitted here again, there is no increase in swelling of lower extremities. There is no calf pain. She does not have any new upper respiratory complaints. The last time she was here, we had recommended setting up a Trilogy at home. She did not have the same setup. I understand that there are some financial considerations and also the patient had limited compliance during previous hospitalization with BiPAP. PAST MEDICAL HISTORY: Severe COPD, interstitial lung disease, connective tissue markers previously were negative, severe pulmonary hypertension, pulmonary artery systolic around 70, left ventricular ejection fraction normal, previous workup for thromboembolism negative, left hip surgery, gallbladder surgery, osteoporosis, hyperlipidemia, cataract surgery, right hip surgery, hysterectomy. SOCIAL HISTORY: Extensive history of smoking, has now discontinued. CURRENT MEDICATIONS: [facility] [employer] reviewed. HOME MEDICATIONS: [facility] [employer] reviewed, on long-term prednisone. FAMILY HISTORY: No pertinent family history. ALLERGIES: No known drug allergies. IMMUNIZATION HISTORY: She has had 2 doses of COVID-19 vaccine mRNA. I do not recall as to whether she has had the booster as well or not. PHYSICAL EXAMINATION: GENERAL: She was alert, awake and oriented. VITAL SIGNS: In the records [place] [address] CONSULTATION Name: RADHIKA STONE Alyssa Room: [address]#: [id number] Admission: 09/28/21 Attend Phys: Tate Mckeon Discharge: 10/06/21 Date of : 44 Report #: [id number] THROAT: No erythema. NECK: Does not show raised JVP. CHEST: Breath sounds are bilaterally equal, decreased. No added sounds. HEART: Regular. There is no murmur. ABDOMEN: Soft and nontender. EXTREMITIES: Lower extremities, no edema. No calf tenderness. Evidence of chronic venous insufficiency. ASSESSMENT AND PLAN: 1. Acute on chronic hypoxemic respiratory failure. She does appear to have a chronic obstructive pulmonary disease exacerbation. There are no obvious precipitating factors with the exception that the patient, when she has come off high-dose prednisone recently, has gradually been having more symptoms, the patient previously has had limited compliance with BiPAP if she is more motivated then using a BiPAP or Trilogy device while asleep will be of benefit. We did attempt to arrange the same earlier. 2. Chronic obstructive pulmonary disease exacerbation. We will continue with Solu-Medrol as well as nebulized bronchodilators. Note that she is on long-term prednisone which we recently increased from 10 every other day to 10 daily. 3. Severe pulmonary hypertension. Previous workup for thromboembolism is negative. Regardless, she does have chronic venous insufficiency and D-dimer is elevated, we will do venous Dopplers as well as a CTA chest. 4. Interstitial lung disease. I have discussed with the patient regarding fibroblast therapy in the past and the patient stated that she was not interested in pursuing such therapy. 5. Pulmonary infiltrates. These appear to be chronic and related to her interstitial lung disease. I do not see any definite evidence of a new infiltrate or pneumonia. Regardless, considering her chronic obstructive pulmonary disease exacerbation, I agree with using broad-spectrum antibiotics. Considering that she received a cephalosporin as well as azithromycin during the last hospitalization, switched over to Levaquin. Note that she is also on vancomycin. I am ordering a CTA chest as above. If there are no new findings on the CTA chest, then suggest considering discontinuing vancomycin. Thank you for this consultation. <ELECTRONICALLY SIGNED> By: Dano Bishop MD 10/08/21 2154 [id number] Bishop MD /nt
== END 2021-10-06 16:39 | disposition hospice, home (50) | DRG 177 ==
LOC: M.ERS 17:32 → M.TBA-ER 19:15 → M.2W 19:15
PROVIDERS: Internal Medicine; Internal Medicine Critical Care Medicine; Nurse Practitioner Psychiatric/Mental Health; Personal Emergency Response Attendant; ADMIT Internal Medicine; ATTEND Internal Medicine
PROC: 5A0935A Assistance with Respiratory Ventilation, Less than 24 Consecutive Hours, High Flow/Velocity Cannula (ICD-10-PCS; principal; 2021-09-29)
PROC: 5A0935A Assistance with Respiratory Ventilation, Less than 24 Consecutive Hours, High Flow/Velocity Cannula (ICD-10-PCS; 2021-09-30)
PROC: 5A0935A Assistance with Respiratory Ventilation, Less than 24 Consecutive Hours, High Flow/Velocity Cannula (ICD-10-PCS; 2021-10-01)
PROC: 5A0935A Assistance with Respiratory Ventilation, Less than 24 Consecutive Hours, High Flow/Velocity Cannula (ICD-10-PCS; 2021-10-02)
DX: J15.6 Pneumonia due to other Gram-negative bacteria (principal); J96.21 Acute and chronic respiratory failure with hypoxia; J44.1 Chronic obstructive pulmonary disease with (acute) exacerbation; J44.0 Chronic obstructive pulmonary disease with (acute) lower respiratory infection; J18.9 Pneumonia, unspecified organism; Y95 Nosocomial condition